=== PATIENT | female | born 2005 | race Caucasian/White ===

== ENCOUNTER 2023-10-09 15:45 | Inpatient (IN) | payer OTHER ==
[~2023-10-09] VITALS: Ht 167.6 cm; Wt 95.7 kg
[2023-10-09] MEDS ORDERED: OxyCODONE HCL 10 MG IR TABLET PO PRN (20:45)
[2023-10-09] MEDS ORDERED: ONDANSETRON HCL 4 MG TABLET PO PRN (20:45)
[2023-10-09] MEDS ORDERED: MELATONIN 3 MG TABLET PO PRN (20:45)
[2023-10-09] MEDS ORDERED: LORATADINE 10 MG TABLET PO PRN (20:45)
[2023-10-09] MEDS ORDERED: METHOCARBAMOL 750 MG TABLET PO PRN (20:45)
[2023-10-09 21:00] VITALS: BP 122/65; PULSE 99; RESP 18; TEMP 97.7; O2SAT 98
[2023-10-09] MEDS: SENNOSIDES 8.6 MG TABLET PO SCH (21:00)
[2023-10-09] MEDS: POLYETHYLENE GLYCOL 3350 17 GM PACKET PO SCH (21:00)
[2023-10-09] MEDS: GABAPENTIN 300 MG CAPSULE PO SCH (21:15)
[2023-10-09] MEDS: ENOXAPARIN SODIUM 40 MG/0.4 ML PF SYRINGE SQ SCH (21:15)
[2023-10-09] MEDS: ETHYL ALCOHOL 62% ANTISEPTIC NASAL SANITIZER 0.6 ML AMPUL NASAL SCH (21:15)
[2023-10-10] MEDS: ACETAMINOPHEN 325 MG TABLET PO SCH (00:01)
[2023-10-10 04:50] VITALS: O2SAT 98
[2023-10-10 08:10] VITALS: BP 127/65; PULSE 102; RESP 18; TEMP 98.2; O2SAT 100
[2023-10-10 08:54] LABS: BASOPHILS % (AUTO) 0.4 % (0.0-2.0); EOSINOPHILS % (AUTO) 1.6 % (1.0-6.0); HEMATOCRIT 26.6 % (36-46); HEMOGLOBIN 8.7 g/dL (12.0-16.0); LYMPHOCYTES % (AUTO) 18.4 % (22.0-44.0); MEAN CORPUSCULAR HEMOGLOBIN 30.1 pg (26.0-34.0); MEAN CORPUSCULAR HGB CONC 32.9 G/dL (31.0-37.0); MEAN CORPUSCULAR VOLUME 91 fL (80-100); MONOCYTES # (AUTO) 1.6 K/uL (0.1-1.0); MONOCYTES % (AUTO) 9.8 % (2.0-9.0); NEUTROPHILS # (AUTO) 11.5 K/uL (1.8-7.7); NEUTROPHILS % (AUTO) 69.8 % (40.0-70.0); PLATELET COUNT (AUTO) 296 K/uL (150-450); RED BLOOD CELL COUNT(AUTO) 2.91 MIL/uL (4.00-5.20); RED CELL DISTRIBUTION WIDTH 13.3 % (11.5-14.5); WHITE BLOOD COUNT (AUTO) 16.5 K/uL (4.5-11.0)
[2023-10-10 09:06] LABS: ALANINE AMINOTRANSFERASE 56 U/L (12-78); ALBUMIN 2.9 g/dL (3.4-5.0); ALKALINE PHOSPHATASE 62 U/L (46-116); ANION GAP 11 mmol/L (8-16); ASPARTATE AMINOTRANSFERASE 69 U/L (15-37); BILIRUBIN,TOTAL 1.4 mg/dL (0.1-1.0); CALCIUM, TOTAL 8.4 mg/dL (8.8-10.5); CARBON DIOXIDE 25 mmol/L (22-29); CHLORIDE 100 mmol/L (98-107); CREATININE 0.67 mg/dL (0.60-1.30); GLOMERULAR FILTR. RATE CALC > 60 mL/min (>60); GLUCOSE,RANDOM 129 mg/dL (70-110); POTASSIUM 3.7 mmol/L (3.5-5.1); SODIUM SERUM 136 mmol/L (136-145); TOTAL PROTEIN, SERUM 6.8 g/dL (6.4-8.2); UREA NITROGEN, BLOOD 14 mg/dL (7-18)
[2023-10-10] MEDS ORDERED: POLYETHYLENE GLYCOL 3350 17 GM PACKET PO PRN (11:15)
[2023-10-10] MEDS ORDERED: SENNOSIDES 8.6 MG TABLET PO PRN (11:15)
[2023-10-10 20:37] VITALS: BP 121/75; PULSE 105; RESP 18; TEMP 98.2; O2SAT 98
[2023-10-10 23:33] VITALS: O2SAT 98
[2023-10-11 08:00] VITALS: BP 133/69; PULSE 83; RESP 17; TEMP 97.5; O2SAT 100
[2023-10-11 14:52] LABS: BASOPHILS % (AUTO) 0.4 % (0.0-2.0); EOSINOPHILS % (AUTO) 1.7 % (1.0-6.0); HEMATOCRIT 26.5 % (36-46); HEMOGLOBIN 8.7 g/dL (12.0-16.0); LYMPHOCYTES # (AUTO) 3.4 K/uL (1.0-4.8); LYMPHOCYTES % (AUTO) 23.5 % (22.0-44.0); MEAN CORPUSCULAR HEMOGLOBIN 30.2 pg (26.0-34.0); MEAN CORPUSCULAR HGB CONC 32.9 G/dL (31.0-37.0); MEAN CORPUSCULAR VOLUME 92 fL (80-100); MONOCYTES # (AUTO) 1.1 K/uL (0.1-1.0); MONOCYTES % (AUTO) 7.7 % (2.0-9.0); NEUTROPHILS # (AUTO) 9.6 K/uL (1.8-7.7); NEUTROPHILS % (AUTO) 66.7 % (40.0-70.0); PLATELET COUNT (AUTO) 329 K/uL (150-450); RED BLOOD CELL COUNT(AUTO) 2.88 MIL/uL (4.00-5.20); RED CELL DISTRIBUTION WIDTH 13.2 % (11.5-14.5); WHITE BLOOD COUNT (AUTO) 14.4 K/uL (4.5-11.0)
[2023-10-11 20:00] VITALS: BP 133/62; PULSE 94; RESP 18; TEMP 98.4; O2SAT 100
[2023-10-12 09:21] VITALS: BP 117/64; PULSE 83; RESP 18; TEMP 98; O2SAT 100
[2023-10-12] MEDS: FERROUS SULFATE 325 MG EC TABLET PO SCH (17:38)
[2023-10-12 20:00] VITALS: BP 110/62; PULSE 95; RESP 18; TEMP 98.2; O2SAT 99
[2023-10-12 21:00] VITALS: O2SAT 99
[2023-10-12 23:39] VITALS: BP 119/67; PULSE 100; RESP 18; TEMP 97.6; O2SAT 100
[2023-10-13] MEDS: OxyCODONE HCL 5 MG IR TABLET PO PRN (03:33)
[2023-10-13 08:05] VITALS: BP 111/72; PULSE 79; RESP 18; TEMP 98.1; O2SAT 99
[2023-10-13 20:30] VITALS: BP 129/70; PULSE 87; RESP 18; TEMP 98.8; O2SAT 98
[2023-10-13 21:43] VITALS: O2SAT 98
[2023-10-14 08:16] VITALS: BP 118/65; PULSE 83; RESP 18; TEMP 98.1; O2SAT 98
[2023-10-14 08:18] VITALS: O2SAT 98
[2023-10-14 08:35] LABS: BASOPHILS % (AUTO) 0.5 % (0.0-2.0); EOSINOPHILS % (AUTO) 1.6 % (1.0-6.0); HEMATOCRIT 28.1 % (36-46); HEMOGLOBIN 9.1 g/dL (12.0-16.0); LYMPHOCYTES # (AUTO) 2.6 K/uL (1.0-4.8); LYMPHOCYTES % (AUTO) 21.2 % (22.0-44.0); MEAN CORPUSCULAR HEMOGLOBIN 30.1 pg (26.0-34.0); MEAN CORPUSCULAR HGB CONC 32.4 G/dL (31.0-37.0); MEAN CORPUSCULAR VOLUME 93 fL (80-100); MONOCYTES # (AUTO) 0.6 K/uL (0.1-1.0); MONOCYTES % (AUTO) 5.4 % (2.0-9.0); NEUTROPHILS # (AUTO) 8.6 K/uL (1.8-7.7); NEUTROPHILS % (AUTO) 71.3 % (40.0-70.0); PLATELET COUNT (AUTO) 467 K/uL (150-450); RED BLOOD CELL COUNT(AUTO) 3.03 MIL/uL (4.00-5.20); WHITE BLOOD COUNT (AUTO) 12.1 K/uL (4.5-11.0)
[2023-10-14 09:47] LABS: ALANINE AMINOTRANSFERASE 31 U/L (12-78); ALKALINE PHOSPHATASE 79 U/L (46-116); ANION GAP 10 mmol/L (8-16); ASPARTATE AMINOTRANSFERASE 28 U/L (15-37); BILIRUBIN,TOTAL 1.3 mg/dL (0.1-1.0); CALCIUM, TOTAL 8.5 mg/dL (8.8-10.5); CARBON DIOXIDE 26 mmol/L (22-29); CHLORIDE 101 mmol/L (98-107); CREATININE 0.68 mg/dL (0.60-1.30); GLOMERULAR FILTR. RATE CALC > 60 mL/min (>60); GLUCOSE,RANDOM 128 mg/dL (70-110); SODIUM SERUM 137 mmol/L (136-145); UREA NITROGEN, BLOOD 14 mg/dL (7-18)
[2023-10-14 20:30] VITALS: BP 104/63; PULSE 97; RESP 18; TEMP 98.8; O2SAT 98
[2023-10-14 21:00] VITALS: O2SAT 98
[2023-10-14 23:15] VITALS: O2SAT 98
[2023-10-15 12:30] VITALS: BP 124/76; PULSE 86; RESP 17; TEMP 98; O2SAT 100
[2023-10-15 20:45] VITALS: BP 110/60; PULSE 96; RESP 18; TEMP 98.5; O2SAT 99
[2023-10-15 22:36] VITALS: O2SAT 99
[2023-10-16 08:30] VITALS: BP 122/63; PULSE 89; RESP 17; TEMP 98.1; O2SAT 100
[2023-10-16 20:00] VITALS: BP 126/62; PULSE 82; RESP 19; TEMP 98; O2SAT 100
[2023-10-16 21:37] VITALS: O2SAT 100
[2023-10-17 08:03] VITALS: BP 124/64; PULSE 70; RESP 18; TEMP 98.2; O2SAT 98
[2023-10-17 09:59] VITALS: O2SAT 98
[2023-10-17 20:00] VITALS: BP 149/83; PULSE 95; RESP 18; TEMP 97.8; O2SAT 100
[2023-10-18 05:34] VITALS: BP 111/72; PULSE 72
[2023-10-18 08:05] VITALS: BP 126/64; PULSE 78; RESP 18; TEMP 98.4; O2SAT 98
[2023-10-18 11:30] VITALS: O2SAT 98
[2023-10-18 20:00] VITALS: BP 119/75; PULSE 79; RESP 18; TEMP 97.7; O2SAT 99
[2023-10-19 04:54] VITALS: O2SAT 99
[2023-10-19 08:29] LABS: BASOPHILS % (AUTO) 0.7 % (0.0-2.0); EOSINOPHILS % (AUTO) 2.4 % (1.0-6.0); HEMATOCRIT 33.2 % (36-46); HEMOGLOBIN 10.8 g/dL (12.0-16.0); LYMPHOCYTES # (AUTO) 2.1 K/uL (1.0-4.8); LYMPHOCYTES % (AUTO) 24.3 % (22.0-44.0); MEAN CORPUSCULAR HEMOGLOBIN 30.3 pg (26.0-34.0); MEAN CORPUSCULAR HGB CONC 32.5 G/dL (31.0-37.0); MEAN CORPUSCULAR VOLUME 93 fL (80-100); MONOCYTES # (AUTO) 0.6 K/uL (0.1-1.0); MONOCYTES % (AUTO) 7.2 % (2.0-9.0); NEUTROPHILS # (AUTO) 5.6 K/uL (1.8-7.7); NEUTROPHILS % (AUTO) 65.4 % (40.0-70.0); PLATELET COUNT (AUTO) 610 K/uL (150-450); RED BLOOD CELL COUNT(AUTO) 3.56 MIL/uL (4.00-5.20); RED CELL DISTRIBUTION WIDTH 15.1 % (11.5-14.5); WHITE BLOOD COUNT (AUTO) 8.5 K/uL (4.5-11.0)
[2023-10-19 08:30] VITALS: BP 126/65; PULSE 87; RESP 17; TEMP 98; O2SAT 99
[2023-10-19] MEDS ORDERED: GABA-1181 PO (09:07)
[2023-10-19] MEDS ORDERED: METH-812 PO (09:07)
[2023-10-19] MEDS ORDERED: LORA10TA7 PO (09:07)
[2023-10-19] MEDS ORDERED: ACET-2247 PO (09:07)
[2023-10-19] MEDS ORDERED: SENN-376 PO (09:07)
[2023-10-19] MEDS ORDERED: MELA3TAB89 PO (09:07)
[2023-10-19] MEDS ORDERED: FERR325T27 PO (09:07)
== END 2023-10-19 11:40 | disposition home or self-care (01) | DRG 562 ==
LOC: 2WR 19:18 → UNDOADMIN 19:18
PROVIDERS: ADMIT Physical Medicine & Rehabilitation; ATTEND Physical Medicine & Rehabilitation
PROC: 8E0XXY8 Suture Removal from Upper Extremity (ICD-10-PCS; principal; 2023-10-16)
DX: S82.831A Other fracture of upper and lower end of right fibula, initial encounter for closed fracture (principal); S72.391B Other fracture of shaft of right femur, initial encounter for open fracture type I or II; D62 Acute posthemorrhagic anemia; R62.7 Adult failure to thrive; I95.1 Orthostatic hypotension; D72.829 Elevated white blood cell count, unspecified; R42 Dizziness and giddiness; M93.271 Osteochondritis dissecans, right ankle and joints of right foot; S62.301A Unspecified fracture of second metacarpal bone, left hand, initial encounter for closed fracture; Z91.018 Allergy to other foods; Z68.34 Body mass index [BMI] 34.0-34.9, adult; V29.888A Rider (driver) (passenger) of other motorcycle injured in other specified transport accidents, initial encounter; Y93.89 Activity, other specified; Y92.89 Other specified places as the place of occurrence of the external cause; Y99.8 Other external cause status
CPT/HCPCS: 80053; 84145; 85025; 87081; 97110; 97116; 97140; 97162; 97167; 97530; 97535; 99366; J1650